=== PATIENT | male | born 1985 | race Caucasian/White ===

== ENCOUNTER 2020-06-28 13:03 | Emergency (ER) | payer OTHER, SELFPAY ==
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
[2020-06-28 13:20] VITALS: BP 160/106; PULSE 115; RESP 16; TEMP 37.2; O2SAT 98
[2020-06-28 14:11] VITALS: BP 158/107; RESP 17
--- NOTE | 2020-06-28 14:13 | PC.NURSE ---
PT ABLE TO AMBULATE TO WHEELCHAIR WITH NO ASSIST
== END 2020-06-28 14:15 | disposition home or self-care (01) ==
PROVIDERS: Emergency Provider Emergency Medicine; PCP Physician Assistant
DX: S22.009D Unspecified fracture of unspecified thoracic vertebra, subsequent encounter for fracture with routine healing (principal)
CPT/HCPCS: 99283; A9270

== ENCOUNTER 2020-08-10 17:46 | Emergency (ER) | payer OTHER, SELFPAY ==
[2020-08-10 18:10] VITALS: BP 185/105; PULSE 118; RESP 20; TEMP 36.9; O2SAT 98
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
== END 2020-08-10 18:20 | disposition home or self-care (01) ==
PROVIDERS: Emergency Provider Family Medicine
DX: S39.012A Strain of muscle, fascia and tendon of lower back, initial encounter (principal)
CPT/HCPCS: 99282; 99283